=== PATIENT | female | born 1980 | race Caucasian/White ===

== ENCOUNTER 2017-03-20 21:23 | Emergency (ER) | payer SELFPAY ==
[2017-03-20 21:27] VITALS: BP 128/95; PULSE 82; RESP 16; TEMP 98.1; O2SAT 97
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
== END 2017-03-20 21:55 | disposition home or self-care (01) ==
DX: S69.92XA Unspecified injury of left wrist, hand and finger(s), initial encounter (principal); V49.40XA Driver injured in collision with unspecified motor vehicles in traffic accident, initial encounter; Y92.410 Unspecified street and highway as the place of occurrence of the external cause; Y99.8 Other external cause status; Y93.89 Activity, other specified